=== PATIENT | male | born 1965 | race Caucasian/White ===

== ENCOUNTER 2023-03-17 09:28 | Outpatient (CLI) | payer BC, SELFPAY ==
--- NOTE | 2023-03-17 10:51 | ECG_ITS ---
Measurements Intervals [place] Rate: 75 P: 78 ND: 183 QRS: 30 QRSD: 109 T: 49 QT: 372 QTc: 417 Interpretive Statements SINUS RHYTHM LEFT ATRIAL ENLARGEMENT [-0.15mV P WAVE IN V1/V2] INCOMPLETE RIGHT BUNDLE BRANCH BLOCK [90+ ms QRS DURATION, TERMINAL R IN V1/V2, 40+ ms S IN I/aVL/V4/V5/V6] ABNORMAL ECG NO PREVIOUS ECG AVAILABLE FOR COMPARISON Electronically Signed On 03-17-2023 12:51:02 MUSIC INTERN by Arthur Zaragoza M.D.
[2023-03-17 11:20] LABS: Basophils Percent Auto 0.5 % (0.2-1.2); Eosinophils Absolute Auto 0.1 K/mm3 (0-0.3); Eosinophils Percent Auto 0.8 % (0-4.4); Hematocrit 47.4 % (42.0-52.0); Hemoglobin 15.7 g/dL (14.0-18.0); Immature Granulocyte Absolute 0.02 K/mm3 (0.00-0.031); Immature Granulocyte Percent A 0.3 % (0-0.5); Lymphocytes Absolute Auto 1.64 K/mm3 (0.9-3.2); Lymphocytes Percent Auto 25.2 % (18.3-44.2); Mean Corpuscular HGB Conc 33.1 g/dl (32-36); Mean Corpuscular Hemoglobin 29.7 pg (26-34); Mean Corpuscular Volume 89.6 fl (80-100); Mean Platelet Volume 9.9 fl (7.4-10.4); Monocytes Absolute Auto 0.6 K/mm3 (0.1-0.6); Monocytes Percent Auto 9.8 % (2.6-8.5); Neutrophils Absolute Auto 4.1 K/mm3 (1.3-6.7); Neutrophils Percent Auto 63.4 % (45.5-73.1); Platelet Count Result 256 k/mm3 (150-375); Red Blood Count 5.29 M/mm3 (4.6-6.20); Red Cell Distribution Width 12.3 % (11.5-14.5); White Blood Count 6.5 K/mm3 (4.5-10.0)
[2023-03-17 11:30] LABS: Alanine Aminotransferase 19 U/L (6-50); Albumin Level 4.6 g/dL (3.5-5.1); Alkaline Phosphatase 61 U/L (38-126); Anion Gap 7 mmol/L (8-16); Aspartate Amino Transferase 25 U/L (17-59); Bilirubin,Total 1.2 mg/dL (0.2-1.3); Blood Urea Nitrogen 20 mg/dL (9-20); Calcium 9.4 mg/dL (8.4-10.2); Carbon Dioxide 28 mmol/L (22-30); Chloride 103 mmol/L (98-107); Estimated Glomerular Filt Rate > 60; Glucose 99 mg/dL (65-110); Potassium 4.4 mmol/L (3.4-5.0); Prothrombin Time 14.2 Seconds (11.1-14.7); Sodium 138 mmol/L (137-145)
[2023-03-17 11:33] LABS: Partial Thromboplastin Time 27.6 SECONDS (22.3-36.8)
== END 2023-03-17 09:29 | disposition home or self-care (01) ==
PROVIDERS: Visit Provider Urology
DX: C61 Malignant neoplasm of prostate (principal); Z01.818 Encounter for other preprocedural examination; I45.10 Unspecified right bundle-branch block
CPT/HCPCS: 36415; 80053; 85025; 85610; 85730; 87086; 93005

== ENCOUNTER 2023-04-02 14:45 | Observation (INO) | payer BC, SELFPAY ==
--- NOTE | 2023-03-17 10:23 | PC.NURSE ---
Report to the Outpatient Waiting Room, entrance under the green pavilion located off [facility], at time __0600 on date 04/01/23 . Planned Procedure Time: _0730 . Time changes happen often and if your time is changed the preop area will call you the afternoon before. - You and your visitor will be asked to self-screen and do not enter if you have any COVID symptoms. - A mask is optional within the hospital at this time. Patients may have clear liquids (water, carbonated beverages, clear teas, apple juice) until 3 hours prior to surgery(4:30 AM ) with a maximum of 20 ounces. - No food from midnight until time of surgery Take the following medications with a SIP of water the morning of surgery: NONE DO NOT STOP ANY OF YOUR OTHER PRESCRIPTION MEDICATIONS PRIOR TO SURGERY ?EXCEPT THE FOLLOWING Medications to discontinue per physician ___HOLD ADVIL 7 DAYS PRE OP.LAST DOSE 03/24/23 MAY TAKE TYLENOL IF NEEDED FOR PAIN. HOLD ALL VITAMINS AND SUPPLEMENTS 3 DAYS PRE OP.LAST 03/28/23 Please no make-up, nail tongan, hairspray, perfume, deodorant, or body powder the day of surgery. No jewelry (including any body piercings) or valuables the day of surgery, leave them at home. Please take a shower or bath the night before, or the morning of, surgery with an antibacterial soap. Wear comfortable, loose fitting clothing. Children are encouraged to wear pajamas. - Jewelry must be removed prior to entering the operating room. Rings and piercings that are not removed may be cut off. - The hospital will not accept responsibility for valuables. - Please leave all valuables, including medications, at home the day of surgery. BOWEL PREP PER DR PETERSEN If you are going home after surgery, a licensed truck driver supervisor must drive you home. - NO public transportation without another adult if you receive anesthesia. - We recommend that an adult stay with you for 24 hours following discharge. - We also recommend that you do not drive, make important decision, drink alcoholic beverages, or take any drugs that were not prescribed by your health care provider for at least 24 hours after your discharge time. For Pediatric surgeries, we recommend two adults accompany the child home. Follow any additional instructions given to you from your surgeon. If you or anyone in your household have experienced Covid symptoms in the past week, please notify your surgeon or the nurse liaison at the phone number below for possible testing. VERBAL AND WRITTEN instructions given to __PATENT and asked if any additional questions and then verbalized understanding. Patient advised to call surgeon office or pre surgery nurse liaison [phone] if any additional questions.
[2023-03-17 10:52] VITALS: BP 133/92; PULSE 77; RESP 18; TEMP 36.7; O2SAT 100; BMI 21.7
[2023-04-01] VITALS (13 sets, daily range): BP systolic 114–149; BP diastolic 63–85; PULSE 98–122; RESP 12–18; TEMP 36.2–36.9; O2SAT 94–100
[2023-04-01] MEDS: LACTATED RINGERS 1,000 ML 30 ML IV CONT ×2 (06:18→11:42)
--- NOTE | 2023-04-01 06:50 | P.PNAN_ITS ---
Anes - Initial Pre Proc Eval Procedure: Operation Date: 04/01/23 07:30 Proposed Procedures p Robotic Nerve Sparing Prostatectomy with Pelvic Lymph Node Dissection - Casimiro Riojas MD Date/Time: 04/01/23 06:50 Surgeon: Casimiro Riojas MD Pre Op Diagnosis: prostate cancer Patient Data Age: 57 Gender: M Height: 1.83 m Weight: 71.1 kg Last Vital Signs Temp 36.7 C 03/17/23 10:52 Pulse 77 03/17/23 10:52 Resp 18 03/17/23 10:52 BP 133/92 H 03/17/23 10:52 Pulse Ox 100 03/17/23 10:52 O2 Del Method Room Air 03/17/23 10:52 Allergies Allergy/AdvReac Type Severity Reaction Status Date / Time cashew nut Allergy Rash Verified 04/01/23 06:09 caffeine AdvReac Headache Verified 04/01/23 06:09 Home Medications Medication Instructions Recorded Confirmed Type Lactobacillus 1 cap PO DAILY 03/17/23 04/01/23 History acidophilus-Bifidobac.animalis 2.5 billion cell capsule (Daily Probiotic) ibuprofen 200 mg tablet (Advil) 400 mg PO Q6H PRN Pain 03/17/23 04/01/23 History multivitamin 1 tablet PO DAILY 03/17/23 04/01/23 History Patient hx anesthesia problems: none Family hx anesthesia problems: none Results Review: All pre-operative results and documents have been reviewed as part of the pre- operative evaluation. [facility] Past Medical History Medical History (Updated 04/01/23 @ 07:06 by Cody Carl DO) Prostate cancer Social History Social History Smoking status: Never smoker Living arrangements: with family Spiritual care concerns: No Anes - Eval Final PreProcedure Day of Procedure 04/01/23 06:50 Patient weight: normal Heart: regular rate and rhythm Lungs: clear to auscultation Airway: Mallampati scale class II Neurological: alert and oriented Last oral intake: >/= 8 hours ASA classification: III Emergent: no Anesthetic plan: proceed Anesthesia type and monitoring: general ETT and standard monitoring Results Review: All pre-operative results and documents have been reviewed as part of the pre- operative evaluation. Informed Consent: The patient's anesthetic plan and its attendant risks and benefits were discussed with the patient/family/POA. Questions were solicited and answers provided to the satisfaction of the patient/family/POA.
--- NOTE | 2023-04-01 07:12 | WPDHPUPDATE1 ---
History and Physical Update Update Date/Time: 04/01/23 07:12 History and Physical has been reviewed, including an updated exam of the patient. There are NO changes in the patient's condition. Risks, benefits, and alternatives have been discussed and questions answered. Patient agrees to proceed with procedure. Proceed with robotic assist nerve sparing prostatectomy with possible PLND
[2023-04-01] MEDS: ceFAZolin 2 GM/D5W 50 ML 2 GM/50 ML BAG IVPB (07:29)
[2023-04-01] MEDS: BUPivacaine HCL 0.5% 10 ML AMP 30 ML INFILTRATE (08:10)
--- NOTE | 2023-04-01 11:32 | W.PM.PROC2 ---
Procedure Note - Detailed Date of Procedure 04/01/23 Pre-op Diagnosis prostate cancer Post-op Diagnosis Same Procedure Performed Robotic assisted nerve-sparing prostatectomy with right pelvic lymph node dissection Surgeon Casimiro Riojas MD Anesthesia General Description of Procedure Patient is taken to the operative suite correctly identified. Once anesthesia was obtained was placed in dorsal lithotomy position oral draped usual sterile fashion. Marvin catheter was placed. Supraumbilical incision was made carried down to the rectus fascia. Veress needle was inserted in the abdomen was insufflated to 15 mmHg pressure. The camera was placed under direct vision. The working ports were placed in appropriate location. Patient was placed in a 7 degree Trendelenburg position and the robot was. Posterior approach was then taken. He did have some adhesions along the left colon which were taken down. Seminal vesicles were dissected out in their entirety. Vas were transected. Plane between the prostate and rectum was developed. Bilateral nerve-sparing was then performed after the bladder was taken down. Puboprostatic were transected. Dorsal venous complex was isolated using an 0 Vicryl suture and secured to the pubic bone. The bladder was then opened. Bladder neck sparing procedure was performed. Posterior layer was incised to expose the previously dissected seminal vesicles. As stated the bilateral nerve-sparing was performed and the pedicles were clipped. Dorsal venous complex was transected. Urethra was also transected and left with a nice urethral stump. I Calixto stitch was placed. Bladder neck was then reanastomosed to the urethra using V lock in a running fashion in a watertight fashion closure. Sixteen Naur[place] Marvin was placed and inflated with 10 cc sterile water. 150 cc were placed without any evidence of extravasation. A right pelvic lymph node dissection had been performed with the boundaries being the obturator nerve, external iliac vein, Willis's ligament, the bifurcation of the vessels. ASMITA drain was placed in the 4th working port site. The prostate had been placed in an Endo-Catch bag along with the pelvic lymph nodes. The robot was undocked. So specimen was brought out through the supraumbilical incision. Rectus fascia was then closed using 0 Vicryl running fashion. Subcuticular stitches were placed. All lap count needle counts sponge counts were correct. Patient tolerated procedure well without any complications was taken recovery stable condition. Estimated Blood Loss 50 Drains Yes Packing No Pathology Yes Complications No immediate complications Condition Stable Disposition PACU
[2023-04-01] MEDS: fentaNYL CITRATE INJ (*CRX) 100 MCG/2 ML VIAL 25 MCG IV PUSH ×8 (11:56→12:41)
--- NOTE | 2023-04-01 13:00 | PC.NURSE ---
This patient, Naman Mock, was admitted to [facility] Surg Room 329-01. Patient/family oriented to hospital policies and general routines including ID bracelet, bed and alarms, visiting hours, pain management, procedures, bathroom and other care routines, personal items, smoking policy, room service/diet, and visiting hours. Information on how to activate the Rapid Response Team has been discussed. Patient/Family are encouraged to report perceived risks to care and to ask questions if they do not understand what they are told or what they should do.
[2023-04-01] MEDS: KETOROLAC 30 MG/ML VIAL (*BKC) IV PUSH (13:38)
[2023-04-01] MEDS: LACTATED RINGERS 1,000 ML 125 ML IV CONT ×2 (13:42→22:04)
[2023-04-01] MEDS: ONDANSETRON INJ 4 MG/2 ML VIAL IV PUSH (15:55)
--- NOTE | ~2023-04-02 | CT_ITS ---
EXAMINATION: CT abdomen pelvis wo con DATE: 04/03/2023 13:00 INDICATION: Intense pain post prostatectomy TECHNIQUE: Computed tomography (CT) of the abdomen and pelvis was performed without intravenous contr ast. Automated exposure control and iterative reconstruction technique were employed. The dose-length product was 303.86 mGy-cm. COMPARISON: None FINDINGS: Mild dependent atelectasis in bilateral lower lobes. Heart size normal. No pericardial or pleural eff usion. Right upper quadrant surgical drain. There is extensive soft tissue gas which can be seen in the right chest wall, throughout the abdomina l and pelvic ulrich and extending into the scrotum and proximal thighs, right greater than left. There are small amounts of gas in the retroperitoneal soft tissues of the pelvis and right abdomen. Finall y there is a small amount of pneumoperitoneum and a few tiny foci of gas in the visualized anterior m ediastinum all likely related to reported recent prostatectomy. Liver, gallbladder, spleen, pancreas, bilateral adrenal glands and kidneys are normal. No bowel obstr uction. Gas and a Marvin catheter within the partially decompressed bladder. There is high attenuation hemorrhage in the extraperitoneal soft tissues in the inferior pelvis surrounding the prostatectomy bed. At the level of the pubic symphysis cyst measures 7.3 x 6.4 cm in maximal transaxial dimensions and measures 4.6 similar craniocaudally posterior to the bladder. Small amount of lower density edema in the presacral fat. There is an additional small amount of hemoperitoneum on either side of the re ctum the larger collection on the right measuring 3.8 x 1.3 x 1.5 cm. No pathologically enlarged abdo [place] or pelvic lymphadenopathy. Multiple small metallic coils along the anterior pelvic wall likely related to prior bilateral inguinal and/or ventral hernia repairs. Mild lumbar and lower thoracic spo ndylosis. IMPRESSION: 1. Moderate amount of hemorrhage abdomen surrounding the recent prostatectomy bed which appears to re main largely extraperitoneal with minimal hemoperitoneum in the deep pelvis. 2. Extensive likely postoperative soft tissue gas in the abdominal, pelvic and lower thoracic body wa ll extending to the proximal thighs, right greater than left, the scrotum, retroperitoneal soft tissu es and with minimal free intraperitoneal gas and a few foci within the inferior anterior mediastinum. Reviewed, dictated and finalized at location A. CARE SPECIALIST IMPRESSION: 1. Moderate amount of hemorrhage abdomen surrounding the recent prostatectomy b ed which appears to remain largely extraperitoneal with minimal hemoperitoneum in the deep pelvis. 2. Extensive likely postoperative soft tissue gas in the abdominal, pelvic and lower thoracic body wall extending to the proximal thighs, right greater than l eft, the scrotum, retroperitoneal soft tissues and with minimal free intraperit peace gas and a few foci within the inferior anterior mediastinum.
[2023-04-02] MEDS: HYDROcodone/acetaminophen (*CRX) 5-325 MG TABLET 2 TAB PO ×4 (04:22→21:28)
[2023-04-02 04:34] VITALS: BP 145/76; PULSE 102; RESP 16; TEMP 37.2; O2SAT 99
[2023-04-02] MEDS: ONDANSETRON INJ 4 MG/2 ML VIAL IV PUSH ×3 (04:51→18:00)
[2023-04-02] MEDS: LACTATED RINGERS 1,000 ML 125 ML IV CONT ×3 (04:52→21:29)
[2023-04-02] MEDS: KETOROLAC 30 MG/ML VIAL (*BKC) IV PUSH (05:13)
[2023-04-02 06:34] LABS: Hematocrit 37.9 % (42.0-52.0); Hemoglobin 12.5 g/dL (14.0-18.0)
[2023-04-02 06:48] LABS: Anion Gap 5 mmol/L (8-16); Blood Urea Nitrogen 10 mg/dL (9-20); Calcium 8.4 mg/dL (8.4-10.2); Carbon Dioxide 29 mmol/L (22-30); Chloride 103 mmol/L (98-107); Estimated CRCL calculation 103 ml/min; Estimated Glomerular Filt Rate > 60; Glucose 125 mg/dL (65-110); Potassium 3.8 mmol/L (3.4-5.0); Sodium 137 mmol/L (137-145)
--- NOTE | 2023-04-02 07:49 | WPDANESPN ---
Anes - Prog Note Post-Op Date/Time: 04/02/23 07:49 Cardiovascular status: normal Respiratory status: normal Airway patency: baseline Mental status: baseline Post-Op hydration status: normal Vital Signs: Last Vital Signs Temp 37.2 C 04/02/23 04:34 Pulse 102 H 04/02/23 04:34 Resp 16 04/02/23 04:34 BP 145/76 H 04/02/23 04:34 Pulse Ox 99 04/02/23 04:34 O2 Del Method Room Air 04/01/23 20:00 O2 Flow Rate 6 04/01/23 12:10 Pain Score (VAS): Patient asleep, no nonverbal signs of pain present at this time. I/O: Intake & Output 04/01/23 04/01/23 04/02/23 15:59 23:59 07:59 Intake Total 600 1100 1000 Output Total 104 982 2354 Balance 449 715 -310 Laboratory Tests 04/02/23 06:14 04/02/23 06:14 04/01/23 04/02/23 06:14 06:14 Hgb 12.5 L D Hct 37.9 L Sodium 137 Potassium 3.8 Chloride 103 Carbon Dioxide 29 Anion Gap 5 L BUN 10 D Creatinine 0.70 Estim Creat Clear Calc 103 Estimated GFR > 60 Glucose 125 H Calcium 8.4 Blood Type B Positive Antibody Screen Negative Post-procedural complaints: none Patient Feedback: Patient satisfied with anesthetic care.
[2023-04-02 08:00] VITALS: BP 119/58; PULSE 86; RESP 14; TEMP 36.1; O2SAT 99
[2023-04-02] MEDS: levoFLOXacin 500 MG TABLET PO (09:27)
[2023-04-02] MEDS: HYOSCYAMINE SULFATE 0.125 MG TABLET SUBLINGUAL ×3 (09:27→21:15)
[2023-04-02 12:00] VITALS: BP 129/72; PULSE 89; RESP 18; TEMP 36.3; O2SAT 97
--- NOTE | 2023-04-02 14:39 | WPDUROPN2 ---
Progress Note: A&P Assessment and Plan (1) Prostate cancer: Code(s): C61 - Malignant neoplasm of prostate Status: Acute Assessment and Plan: Doing well overall but having discomfort at ASMITA site. Given that he lives an hour away will keep him another 24 hours. Re-evaluate in the morning and hopefully get ASMITA out and discharge home. Subjective Subjective Date/Time Seen: 04/02/23 14:39 Post Op day: 1 (Robotic assisted nerve-sparing prostatectomy with right pelvic node dissection) Principal diagnosis: Adenocarcinoma prostate Interval history: Naman did well initially overnight but then describes some discomfort with what appears to be spasms. He also was having quite a bit of irritation around the ASMITA site. Vital signs are stable and he is afebrile. Review of Systems Review of Systems: All systems reviewed & are unremarkable except as noted in HPI and below Exam Const: General: cooperative Resp: Effort & Inspection: decreased respiratory effort (Due to discomfort from the site) Cardio: Rate: regular rate Rhythm: regular rhythm GI: Inspection: normal to inspection and non-distended Urinary Catheter: Urinary Catheter: patent and draining and urine clear Objective Data Vital Signs Vital Signs: Vital Signs - 24 hr 04/01/23 14:45 04/01/23 18:45 04/01/23 20:00 Temperature 36.3 C L 36.9 C Pulse Rate 98 118 H 118 H Respiratory Rate 16 16 16 Blood Pressure 129/70 131/67 Pulse Oximetry 95 97 97 Oxygen Delivery Room Air 04/01/23 20:58 04/02/23 04:34 04/02/23 08:00 Temperature 36.6 C 37.2 C 36.1 C L Pulse Rate 104 H 102 H 86 Respiratory Rate 16 16 14 Blood Pressure 139/65 145/76 H 119/58 L Pulse Oximetry 97 99 99 Oxygen Delivery 04/02/23 12:00 Temperature 36.3 C L Pulse Rate 89 Respiratory Rate 18 Blood Pressure 129/72 Pulse Oximetry 97 Oxygen Delivery Intake/Output Intake/Output: Intake & Output 03/30/23 03/31/23 04/01/23 04/02/23 23:59 23:59 23:59 23:59 Intake Total 1700 2490 Output Total 536 1310 Balance 1164 1180 Meds/Results Medications: Active Medications Generic Name Dose Route Start Last Admin Trade Name Freq PRN Reason Stop Dose Admin Hydrocodone Bitart/Acetaminophen 1 tab 04/01/23 12:52 Hydrocodone/Acetaminophen (*Crx) 5-325 Mg Tablet PO Q6H PRN Pain Rated 1-3 Hydrocodone Bitart/Acetaminophen 2 tab 04/01/23 12:52 04/02/23 09:26 Hydrocodone/Acetaminophen (*Crx) 5-325 Mg Tablet PO 2 tab Q6H PRN Administration Pain Rated 4-6 Hyoscyamine 0.125 mg 04/01/23 12:52 04/02/23 12:57 Hyoscyamine Sulfate 0.125 Mg Tablet SUBLINGUAL 0.125 mg Q4H PRN Administration Bladder Spasm Lactated Ringer's 1,000 mls @ 125 mls/hr 04/01/23 12:52 04/02/23 12:56 Lr - Lactated Ringers Iv IV CONT 125 mls/hr .Q8H MAUDE Administration Levofloxacin 500 mg 04/02/23 09:00 04/02/23 09:27 Levofloxacin 500 Mg Tablet PO 500 mg DAILY MAUDE Administration Morphine Sulfate 1 mg 04/01/23 12:52 Morphine Sulfate (*Crx) 2 Mg/Ml Inj IV PUSH Q2H PRN Pain Rated 7-10 Naloxone HCl 0.1 mg 04/01/23 12:52 Naloxone Hcl 0.4 Mg/Ml Vial IV PUSH Q2M PRN Opiate Reversal Ondansetron HCl 4 mg 04/01/23 15:36 04/02/23 12:57 Ondansetron Inj 4 Mg/2 Ml Vial IV PUSH 4 mg Q6H PRN Administration Nausea And Vomiting Labs Labs: Laboratory Results - last 24 hr 04/02/23 06:14 Hgb 12.5 L D Hct 37.9 L Sodium 137 Potassium 3.8 Chloride 103 Carbon Dioxide 29 Anion Gap 5 L BUN 10 D Creatinine 0.70 Estim Creat Clear Calc 103 Estimated GFR > 60 Glucose 125 H Calcium 8.4
[2023-04-02 16:00] VITALS: BP 125/65; PULSE 84; RESP 16; TEMP 36.1; O2SAT 99
[2023-04-02 20:00] VITALS: BP 162/80; PULSE 112; RESP 16; TEMP 36.5; O2SAT 98; O2SAT 99
[2023-04-02] MEDS: DOCUSATE SODIUM 100 MG CAPSULE PO (21:15)
[2023-04-03] VITALS: BP 134/66; PULSE 83; RESP 16; TEMP 36.5; O2SAT 99
[2023-04-03] MEDS: HYOSCYAMINE SULFATE 0.125 MG TABLET SUBLINGUAL ×2 (03:32→12:19)
[2023-04-03 04:00] VITALS: BP 159/80; PULSE 96; RESP 16; TEMP 36.9; O2SAT 96
[2023-04-03] MEDS: HYDROcodone/acetaminophen (*CRX) 5-325 MG TABLET 2 TAB PO (04:34)
[2023-04-03] MEDS: ONDANSETRON INJ 4 MG/2 ML VIAL IV PUSH ×2 (05:17→12:39)
--- NOTE | 2023-04-03 06:43 | PC.NURSE ---
Patient conts to c/o nausea after given zofran. No other PRNs available. Urology exchange notified. Awaiting return call.
--- NOTE | 2023-04-03 06:55 | PC.NURSE ---
Spoke with Dr. Shaikh at this time r/t patient's nausea. New order received for phenergan 25 mg IM Q8H PRN.
--- NOTE | 2023-04-03 08:11 | WPDUROPN2 ---
Progress Note: A&P Assessment and Plan (1) Prostate cancer: Code(s): C61 - Malignant neoplasm of prostate Status: Acute Assessment and Plan: Progressing very slowly. Will check CBC and BMP this morning. Will make sure he does not receive any morphine or hydrocodone at this time. Will switch to tramadol as needed as well as Tylenol. Continue with ASMITA for the time being. Further recommendations pending laboratory studies this morning. He has been ambulating but needs to continue that this morning. Subjective Subjective Date/Time Seen: 04/03/23 08:11 Post Op day: 2 Principal diagnosis: adenocarcinoma prostate Interval history: Naman is having a very slow recovery. He has a lot of nonspecific complaints at this time. He appears to be hemodynamically stable however. He describes some mild hallucinations as well as nonspecific abdominal discomfort. His urine is clear at this time. He is starting to pass some mild flatus. Review of Systems Review of Systems: All systems reviewed & are unremarkable except as noted in HPI and below Exam Const: General: cooperative and no acute distress Resp: Effort & Inspection: normal respiratory effort Cardio: Rate: regular rate Rhythm: regular rhythm GI: Inspection: non-distended GI Palp: Yes Soft to palpation and No Guarding due to palpation present (GI) Urinary Catheter: Urinary Catheter: patent and draining and urine clear Objective Data Vital Signs Vital Signs: Vital Signs - 24 hr 04/02/23 12:00 04/02/23 16:00 04/02/23 20:00 Temperature 36.3 C L 36.1 C L 36.5 C Pulse Rate 89 84 112 H Respiratory Rate 18 16 16 Blood Pressure 129/72 125/65 162/80 H Pulse Oximetry 97 99 98 Oxygen Delivery 04/03/23 00:00 04/02/23 20:00 04/03/23 04:00 Temperature 36.5 C 36.9 C Pulse Rate 83 96 Respiratory Rate 16 16 Blood Pressure 134/66 159/80 H Pulse Oximetry 99 99 96 Oxygen Delivery Room Air Intake/Output Intake/Output: Intake & Output 03/31/23 04/01/23 04/02/23 04/03/23 23:59 23:59 23:59 23:59 Intake Total 1700 4490 Output Total 536 1177 488 Balance 1164 1715 -099 Meds/Results Medications: Active Medications Generic Name Dose Route Start Last Admin Trade Name Freq PRN Reason Stop Dose Admin Hydrocodone Bitart/Acetaminophen 1 tab 04/01/23 12:52 Hydrocodone/Acetaminophen (*Crx) 5-325 Mg Tablet PO Q6H PRN Pain Rated 1-3 Hydrocodone Bitart/Acetaminophen 2 tab 04/01/23 12:52 04/03/23 04:34 Hydrocodone/Acetaminophen (*Crx) 5-325 Mg Tablet PO 2 tab Q6H PRN Administration Pain Rated 4-6 Docusate Sodium 100 mg 04/02/23 21:00 04/02/23 21:15 Docusate Sodium 100 Mg Capsule PO 100 mg Q12HR MAUDE Administration Hyoscyamine 0.125 mg 04/01/23 12:52 04/03/23 03:32 Hyoscyamine Sulfate 0.125 Mg Tablet SUBLINGUAL 0.125 mg Q4H PRN Administration Bladder Spasm Lactated Ringer's 1,000 mls @ 125 mls/hr 04/01/23 12:52 04/02/23 21:29 Lr - Lactated Ringers Iv IV CONT 125 mls/hr .Q8H MAUDE Administration Levofloxacin 500 mg 04/02/23 09:00 04/02/23 09:27 Levofloxacin 500 Mg Tablet PO 500 mg DAILY MAUDE Administration Morphine Sulfate 1 mg 04/01/23 12:52 Morphine Sulfate (*Crx) 2 Mg/Ml Inj IV PUSH Q2H PRN Pain Rated 7-10 Naloxone HCl 0.1 mg 04/01/23 12:52 Naloxone Hcl 0.4 Mg/Ml Vial IV PUSH Q2M PRN Opiate Reversal Ondansetron HCl 4 mg 04/01/23 15:36 04/03/23 05:17 Ondansetron Inj 4 Mg/2 Ml Vial IV PUSH 4 mg Q6H PRN Administration Nausea And Vomiting Promethazine HCl 25 mg 04/03/23 06:54 Promethazine Hcl 25 Mg/Ml Ampul IM Q8H PRN Nausea And Vomiting
[2023-04-03 08:18] LABS: Hematocrit 34.3 % (42.0-52.0); Hemoglobin 11.4 g/dL (14.0-18.0); Mean Corpuscular HGB Conc 33.2 g/dl (32-36); Mean Corpuscular Hemoglobin 30.6 pg (26-34); Mean Platelet Volume 10.1 fl (7.4-10.4); Platelet Count Result 211 k/mm3 (150-375); Red Blood Count 3.73 M/mm3 (4.6-6.20); White Blood Count 9.6 K/mm3 (4.5-10.0)
[2023-04-03 08:31] LABS: Anion Gap 5 mmol/L (8-16); Blood Urea Nitrogen 10 mg/dL (9-20); Calcium 8.3 mg/dL (8.4-10.2); Carbon Dioxide 29 mmol/L (22-30); Chloride 102 mmol/L (98-107); Estimated CRCL calculation 119 ml/min; Estimated Glomerular Filt Rate > 60; Glucose 112 mg/dL (65-110); Potassium 3.7 mmol/L (3.4-5.0); Sodium 136 mmol/L (137-145)
[2023-04-03] MEDS: levoFLOXacin 500 MG TABLET PO (09:40)
[2023-04-03] MEDS: DOCUSATE SODIUM 100 MG CAPSULE PO (09:40)
[2023-04-03] MEDS: PROMETHAZINE HCL 25 MG/ML AMPUL IM (09:41)
[2023-04-03] MEDS: LACTATED RINGERS 1,000 ML 125 ML IV CONT ×2 (09:41→22:03)
[2023-04-03] MEDS: MORPHINE SULFATE (*CRX) 2 MG/ML INJ 1 MG IV PUSH (12:40)
[2023-04-03 14:00] VITALS: BP 131/75; PULSE 101; RESP 16; TEMP 36.6; O2SAT 95
[2023-04-03 14:28] LABS: Glucose Point of Care 120 mg/dl (65-105)
[2023-04-03] MEDS: traMADol HCL (*CRX) 50 MG TABLET PO ×2 (15:54→22:01)
[2023-04-03 15:58] LABS: Hematocrit 38.7 % (42.0-52.0); Hemoglobin 12.7 g/dL (14.0-18.0)
[2023-04-03] MEDS: ACETAMINOPHEN 325 MG TABLET 650 MG PO (20:34)
[2023-04-03 20:43] VITALS: BP 149/83; PULSE 102; RESP 16; TEMP 36.7; O2SAT 93
[2023-04-04] MEDS: ONDANSETRON INJ 4 MG/2 ML VIAL IV PUSH ×2 (00:34→06:18)
[2023-04-04] MEDS: PROMETHAZINE HCL 25 MG/ML AMPUL IM (01:57)
[2023-04-04 05:00] VITALS: BP 124/59; PULSE 103; RESP 16; TEMP 36.9; O2SAT 96
[2023-04-04] MEDS: traMADol HCL (*CRX) 50 MG TABLET PO (05:22)
[2023-04-04] MEDS: LACTATED RINGERS 1,000 ML 125 ML IV CONT ×2 (05:27→19:55)
[2023-04-04 08:20] LABS: Basophils Percent Auto 0.1 % (0.2-1.2); Hematocrit 36.6 % (42.0-52.0); Immature Granulocyte Absolute 0.08 K/mm3 (0.00-0.031); Immature Granulocyte Percent A 0.6 % (0-0.5); Lymphocytes Absolute Auto 1.05 K/mm3 (0.9-3.2); Lymphocytes Percent Auto 7.4 % (18.3-44.2); Mean Corpuscular HGB Conc 32.8 g/dl (32-36); Mean Corpuscular Hemoglobin 29.9 pg (26-34); Mean Platelet Volume 10.1 fl (7.4-10.4); Monocytes Absolute Auto 1.6 K/mm3 (0.1-0.6); Monocytes Percent Auto 11.6 % (2.6-8.5); Neutrophils Absolute Auto 11.3 K/mm3 (1.3-6.7); Neutrophils Percent Auto 80.3 % (45.5-73.1); Platelet Count Result 258 k/mm3 (150-375); Red Blood Count 4.02 M/mm3 (4.6-6.20); Red Cell Distribution Width 12.7 % (11.5-14.5); White Blood Count 14.1 K/mm3 (4.5-10.0)
--- NOTE | 2023-04-04 08:22 | WPDUROPN2 ---
Progress Note: A&P Assessment and Plan (1) Prostate cancer: Code(s): C61 - Malignant neoplasm of prostate Status: Acute Assessment and Plan: progressing slowly he has been hemodynamically stable. He does have a hematoma that formed in his pelvic area. This most likely was from the DVC complex. He has been hemodynamically stable. H&H is pending today. Patient is ambulating and having bowel movements. He did have some emesis last night however. His abdomen is soft and not distended. This mild ileus should resolve. Will see what his labs show this morning. If he is hemodynamically stable and his blood levels are also stable possibly discharge home in the next day or so. Will make a decision regarding removing his ASMITA or leaving it in until Friday. His pathology revealed adenocarcinoma with negative margins. Subjective Subjective Date/Time Seen: 04/04/23 08:22 Post Op day: 3 Principal diagnosis: Adenocarcinoma prostate Interval history: , as is progressing slowly. He is having bowel movements but also had some emesis last evening. His abdomen is not distended. CT scan did reveal a bleed around the pubic symphysis most likely from the dorsal venous complex. Hemodynamically has been stable. His hemoglobin at 4:00 p.m. yesterday was stable. Today's labs are pending. He is ambulating much better today. Pathology revealed negative margins. Review of Systems Review of Systems: All systems reviewed & are unremarkable except as noted in HPI and below Exam Const: General: cooperative and no acute distress Resp: Effort & Inspection: normal respiratory effort Cardio: Rate: regular rate Rhythm: regular rhythm GI: Inspection: normal to inspection and non-distended Urinary Catheter: Urinary Catheter: patent and draining and urine clear Objective Data Vital Signs Vital Signs: Vital Signs - 24 hr 04/03/23 14:00 04/03/23 20:43 04/03/23 20:00 Temperature 36.6 C 36.7 C Pulse Rate 101 H 102 H Respiratory Rate 16 16 Blood Pressure 131/75 149/83 H Pulse Oximetry 95 93 Oxygen Delivery Room Air 04/04/23 05:00 Temperature 36.9 C Pulse Rate 103 H Respiratory Rate 16 Blood Pressure 124/59 L Pulse Oximetry 96 Oxygen Delivery Intake/Output Intake/Output: Intake & Output 04/01/23 04/02/23 04/03/23 04/04/23 23:59 23:59 23:59 23:59 Intake Total 1700 4490 2500 1000 Output Total 536 2775 1400 1650 Balance 1164 1715 1100 -650 Meds/Results Medications: Active Medications Generic Name Dose Route Start Last Admin Trade Name Freq PRN Reason Stop Dose Admin Acetaminophen 650 mg 04/03/23 22:11 Acetaminophen 325 Mg Tablet PO Q4H PRN Mild Pain (1-3) or Fever Docusate Sodium 100 mg 04/02/23 21:00 04/03/23 20:42 Docusate Sodium 100 Mg Capsule PO Not Given Q12HR [facility] Hyoscyamine 0.125 mg 04/01/23 12:52 04/03/23 12:19 Hyoscyamine Sulfate 0.125 Mg Tablet SUBLINGUAL 0.125 mg Q4H PRN Administration Bladder Spasm Lactated Ringer's 1,000 mls @ 125 mls/hr 04/01/23 12:52 04/04/23 05:27 Lr - Lactated Ringers Iv IV CONT 125 mls/hr .Q8H [facility] Administration Levofloxacin 500 mg 04/02/23 09:00 04/03/23 09:40 Levofloxacin 500 Mg Tablet PO 500 mg DAILY [facility] Administration Morphine Sulfate 2 mg 04/03/23 15:26 Morphine Sulfate (*Crx) 2 Mg/Ml Inj IV PUSH Q4H PRN Pain Rated 7-10 Naloxone HCl 0.1 mg 04/01/23 12:52 Naloxone Hcl 0.4 Mg/Ml Vial IV PUSH Q2M PRN Opiate Reversal Ondansetron HCl 4 mg 04/01/23 15:36 04/04/23 06:18 Ondansetron Inj 4 Mg/2 Ml Vial IV PUSH 4 mg Q6H PRN Administration Nausea And Vomiting Promethazine HCl 25 mg 04/03/23 06:54 04/04/23 01:57 Promethazine Hcl 25 Mg/Ml Ampul IM 25 mg Q8H PRN Administration Nausea And Vomiting Tramadol HCl 50 mg 04/03/23 08:38 04/04/23 05:22 Tramadol Hcl (*Crx) 50 Mg Tablet PO 50 mg Q6H PRN Administration
[2023-04-04 08:34] LABS: Anion Gap 8 mmol/L (8-16); Blood Urea Nitrogen 15 mg/dL (9-20); Calcium 8.8 mg/dL (8.4-10.2); Carbon Dioxide 29 mmol/L (22-30); Chloride 102 mmol/L (98-107); Estimated CRCL calculation 103 ml/min; Estimated Glomerular Filt Rate > 60; Glucose 132 mg/dL (65-110); Potassium 3.7 mmol/L (3.4-5.0); Sodium 139 mmol/L (137-145)
[2023-04-04] MEDS: levoFLOXacin 500 MG TABLET PO (08:55)
[2023-04-04] MEDS: HYOSCYAMINE SULFATE 0.125 MG TABLET SUBLINGUAL (09:06)
[2023-04-04 12:00] VITALS: BP 146/70; PULSE 88; RESP 16; TEMP 36.2; O2SAT 94
[2023-04-04 20:44] VITALS: BP 135/83; PULSE 101; RESP 16; TEMP 36.5; O2SAT 97
[2023-04-05 04:30] VITALS: BP 140/85; PULSE 87; RESP 16; TEMP 36.6; O2SAT 100
[2023-04-05] MEDS: LACTATED RINGERS 1,000 ML 125 ML IV CONT (04:32)
[2023-04-05] MEDS: levoFLOXacin 500 MG TABLET PO (09:15)
--- NOTE | 2023-04-05 09:31 | WPDUROPN2 ---
Progress Note: A&P Assessment and Plan (1) Prostate cancer: Code(s): C61 - Malignant neoplasm of prostate Status: Acute Assessment and Plan: Home today with Marvin catheter. Operating surgeon would also like him sent home with ASMITA drain. I advised him to not take stool softeners if he is having frequent bowel movements. I advised him to limit the narcotic pain medication as well. present in the room. He wants to see how he does with breakfast before going home. Prescriptions are on the chart and or at his pharmacy Subjective Subjective Date/Time Seen: 04/05/23 09:31 Interval history: He is tolerating a diet. He is ambulating. A Marvin catheter is draining clear yellow urine. He is having bowel movements frequently. I advised him to stop the stool softener. ASMITA drain in place. His abdomen is soft. He is nervous about going home, but he looks and fair enough condition for discharge today. I did advise him that we are doing very little for him in the hospital he may recover better at home. He is not requiring pain medication or bladder spasm medicines Exam Narrative: No acute distress Incisions clear Abdomen is soft There is no distension Marvin catheter draining clear yellow urine ASMITA output is thin Objective Data Vital Signs Vital Signs: Vital Signs - 24 hr 04/04/23 12:00 04/04/23 20:44 04/05/23 04:30 Temperature 97.1 F L 97.7 F 97.9 F Pulse Rate 88 101 H 87 Respiratory Rate 16 16 16 Blood Pressure 146/70 H 135/83 140/85 Pulse Oximetry 94 97 100 Intake/Output Intake/Output: Intake & Output 04/02/23 04/03/23 04/04/23 04/05/23 23:59 23:59 23:59 23:59 Intake Total 4490 2500 2450 1000 Output Total 2775 1400 2190 750 Balance 1715 1100 260 250 Meds/Results Medications: Active Medications Generic Name Dose Route Start Last Admin Trade Name Freq PRN Reason Stop Dose Admin Acetaminophen 650 mg 04/03/23 22:11 Acetaminophen 325 Mg Tablet PO Q4H PRN Mild Pain (1-3) or Fever Docusate Sodium 100 mg 04/02/23 21:00 04/05/23 09:13 Docusate Sodium 100 Mg Capsule PO Not Given Q12HR [facility] Hyoscyamine 0.125 mg 04/01/23 12:52 04/04/23 09:06 Hyoscyamine Sulfate 0.125 Mg Tablet SUBLINGUAL 0.125 mg Q4H PRN Administration Bladder Spasm Lactated Ringer's 1,000 mls @ 125 mls/hr 04/01/23 12:52 04/05/23 04:32 Lr - Lactated Ringers Iv IV CONT 125 mls/hr .Q8H [facility] Administration Levofloxacin 500 mg 04/02/23 09:00 04/05/23 09:15 Levofloxacin 500 Mg Tablet PO 500 mg DAILY [facility] Administration Morphine Sulfate 2 mg 04/03/23 15:26 Morphine Sulfate (*Crx) 2 Mg/Ml Inj IV PUSH Q4H PRN Pain Rated 7-10 Naloxone HCl 0.1 mg 04/01/23 12:52 Naloxone Hcl 0.4 Mg/Ml Vial IV PUSH Q2M PRN Opiate Reversal Ondansetron HCl 4 mg 04/01/23 15:36 04/04/23 06:18 Ondansetron Inj 4 Mg/2 Ml Vial IV PUSH 4 mg Q6H PRN Administration Nausea And Vomiting Promethazine HCl 25 mg 04/03/23 06:54 04/04/23 01:57 Promethazine Hcl 25 Mg/Ml Ampul IM 25 mg Q8H PRN Administration Nausea And Vomiting Tramadol HCl 50 mg 04/03/23 08:38 04/04/23 05:22 Tramadol Hcl (*Crx) 50 Mg Tablet PO 50 mg Q6H PRN Administration Pain Rated 4-6 Radiology Results: ITS Impressions Abdomen/Pelvis CT 04/03/23 13:03 IMPRESSION: 1. Moderate amount of hemorrhage abdomen surrounding the recent prostatectomy bed which appears to remain largely extraperitoneal with minimal hemoperitoneum in the deep pelvis. 2. Extensive likely postoperative soft tissue gas in the abdominal, pelvic and lower thoracic body wall extending to the proximal thighs, right greater than left, the scrotum, retroperitoneal soft tissues and with minimal free intraperitoneal gas and a few foci within the inferior anterior mediastinum.
[2023-04-05] MEDS: ACETAMINOPHEN 325 MG TABLET 650 MG PO (11:38)
--- NOTE | 2023-04-24 12:51 | DS_ITS ---
This report was moved to the correct visit on 05/07/2023. The original report was signed by Casimiro Riojas MD on 04/24/23 [id number]. DS: Admitting Diagnosis Discharge Date 04/05/23 Admitting Diagnosis Adenocarcinoma prostate DS: Discharge Diagnosis Discharge Diagnosis Plan Discharged home with Marvin catheter. Follow up next week for Marvin removal DS: Summary Hospital Course Hospital Course: Patient underwent a robotic assisted nerve-sparing prostatectomy on 04/01/2023. Postoperatively he had difficulty with increasing pain and ileus. CT scan revealed that he has small bleeding around the dorsal venous complex. His stay was somewhat prolonged due to his ileus and pain. Eventually his ASMITA was removed and his pain resolved. He was discharged home with this Marvin catheter. Plan is to have a catheter cystogram in a week's time. Time Spent with Patient Time attestation: Total time spent providing and/or coordinating discharge services: Discharge Plan Discharge Patient Disposition: Home, Self-Care Discharge Instructions: Discharged to home with Marvin catheter. Follow-up the following week for catheter cystogram. Discharge Medications: Continued multivitamin Tablet 1 tablet PO DAILY Daily Probiotic 2.5 billion cell Capsule 1 cap PO DAILY ibuprofen [Advil] 200 mg Tablet 400 mg PO Q6H PRN (Reason: Pain) This report may have been done utilizing a voice recognition system. Attempts have been made to correct errors. However, there may be uncorrected grammatical, spelling, and recognition errors present. Report Initialized date/time: Casimiro Riojas MD 04/24/23 / 1251 Electronically signed by: Casimiro Riojas MD 04/24/23 1258 [facility]
== END 2023-04-05 11:45 | disposition home or self-care (01) ==
LOC: ANHSURGERY 15:11 → ANH3MEDSUR 04-04 09:28
PROVIDERS: Admitting Provider Urology; Visit Provider Urology
PROC: 0VT04ZZ Resection of Prostate, Percutaneous Endoscopic Approach (ICD-10-PCS; CPT 55867; principal; 2023-04-01 07:30)
DX: C61 Malignant neoplasm of prostate (principal); Z79.1 Long term (current) use of non-steroidal anti-inflammatories (NSAID); Z79.899 Other long term (current) drug therapy
CPT/HCPCS: 55842; S2900; 36415; 74176; 80048; 82948; 85014; 85018; 85025; 85027; 86850; 86900; 86901; 88305; 88309; A9270; G0378; J0360; J0690; J1100; J1170; J1200; J1885; J2250; J2270; J2405; J2550; J2704; J3010; J7030; J7120; Q9968

== ENCOUNTER 2023-04-10 11:22 | Outpatient (CLI) | payer BC, SELFPAY ==
--- NOTE | ~2023-04-10 | XR_ITS ---
EXAMINATION: CYSTOGRAM DATE: 04/10/2023 12:17 INDICATION: Prostate cancer post prostatectomy TECHNIQUE: Initial technology education instructor radiograph of the pelvis was performed. There was retrograde administration of Omnipaque 350 mixed with saline contrast into patient's existing Marvin catheter. Fluoroscopic eren ges of the pelvis were obtained. A post-void image was also performed. Fluoroscopy exposure time was 0.3 minutes. A total of 11 fluoroscopic images and one overhead radiograph were obtained. Total DAP w as 5.4 Gycm^2 FINDINGS: There is normal filling of the bladder with V shaped configuration at the bladder outlet consistent w ith reported prior prostatectomy. No vesicoureteral reflux or evident extraluminal contrast extravasa tion. Surgical drain extends into the right upper quadrant on the technology education instructor image. Multiple small metalli c coils projecting over the pelvis consistent with prior ventral hernia repair. Normal bowel gas urbano aileen. Bones are unremarkable. IMPRESSION: 1. No bladder leak post prostatectomy. Reviewed, dictated and finalized at location A. ARD REPORTER
--- NOTE | 2023-04-24 12:49 | PM.DS ---
DS: Admitting Diagnosis Discharge Date 04/05/23 Admitting Diagnosis Adenocarcinoma prostate DS: Discharge Diagnosis Discharge Diagnosis Plan Discharged home with Marvin catheter. Follow up next week for Marvin removal DS: Summary Hospital Course Hospital Course: Patient underwent a robotic assisted nerve-sparing prostatectomy on 04/01/2023. Postoperatively he had difficulty with increasing pain and ileus. CT scan revealed that he has small bleeding around the dorsal venous complex. His stay was somewhat prolonged due to his ileus and pain. Eventually his ASMITA was removed and his pain resolved. He was discharged home with this Marvin catheter. Plan is to have a catheter cystogram in a week's time. Time Spent with Patient Time attestation: Total time spent providing and/or coordinating discharge services: Discharge Plan Discharge Patient Disposition: Home, Self-Care Discharge Instructions: Discharged to home with Marvin catheter. Follow-up the following week for catheter cystogram. Discharge Medications: Continued multivitamin Tablet 1 tablet PO DAILY Daily Probiotic 2.5 billion cell Capsule 1 cap PO DAILY ibuprofen [Advil] 200 mg Tablet 400 mg PO Q6H PRN (Reason: Pain)
== END 2023-04-10 11:23 | disposition home or self-care (01) ==
PROVIDERS: PCP Family Medicine; Visit Provider Urology
DX: C61 Malignant neoplasm of prostate (principal)
CPT/HCPCS: 51600; 74430; Q9967